=== PATIENT | female | born 1935 | race Asian ===

== ENCOUNTER 2021-08-22 01:18 | Emergency (ER) | payer MEDICARE, MEDICAID ==
[~2021-08-22] VITALS: Ht 149.9 cm; Wt 47.8 kg
[~2021-08-22 01:18] MED LIST: HYDR-4353 PO
[2021-08-22 01:22] VITALS: BP 154/70
[2021-08-22] MEDS ORDERED: LIDOcaine 1% W/epiNEPHrine 1:200,000 10ml vial IJ ONE (02:10)
[2021-08-22] MEDS ORDERED: TETanus/Pertussis (Acell)/Diphther VAC/PF (Tdap-Adult) 0.5ml syringe IMVAC ONE (02:10)
[2021-08-22] MEDS ORDERED: acetaminophen 325mg tablet PO ONE (02:40)
== END 2021-08-22 03:33 | disposition home or self-care (01) ==
LOC: ER 01:18
DX: S00.03XA Contusion of scalp, initial encounter (principal); S09.90XA Unspecified injury of head, initial encounter; E78.00 Pure hypercholesterolemia, unspecified; Z85.43 Personal history of malignant neoplasm of ovary; Z79.899 Other long term (current) drug therapy; W01.0XXA Fall on same level from slipping, tripping and stumbling without subsequent striking against object, initial encounter; Z91.81 History of falling; Y93.89 Activity, other specified; Y92.89 Other specified places as the place of occurrence of the external cause; Y99.8 Other external cause status
CPT/HCPCS: 70450; 90471; 90715; 99284